=== PATIENT | male | born 1980 | race Caucasian/White ===

== ENCOUNTER → 2019-07-26 08:47 | Outpatient (CLI) | payer OTHER, SELFPAY ==
[2018-12-20 12:02] VITALS: BMI 28.8
--- NOTE | 2019-07-26 08:55 | CT_ITS ---
STUDY: CT MAXILLOFACIAL SINUSES REASON FOR EXAM: Male, 38 years old. Facial pain and pressure RADIATION DOSAGE (If Supplied By Facility): CTDIvol = ( 33.06 ) mGy, DLP = ( 891.70 ) mGycm TECHNIQUE: The patient was scanned in a multi detector CT scanner. High resolution axial imaging was performed without the administration of intravenous contrast material. Sagittal and coronal images were reconstructed. Individualized dose optimization techniques were used for this CT. COMPARISON: None. FINDINGS: FRONTAL SINUSES: Normal aeration, without mucosal inflammatory disease. ETHMOIDAL SINUSES: Normal aeration, with minimal mucosal inflammatory disease. MAXILLARY SINUSES: Normal aeration, with minimal mucosal inflammatory disease. SPHENOIDAL SINUSES: Normal aeration, without mucosal inflammatory disease. There is patency of the bilateral maxillary infundibuli with normal uncinate processes, ethmoid bullae, and hiatus semilunaris. Normal bilateral middle turbinates. Normal bilateral inferior turbinates. Normal midline nasal septum. There is patency of the bilateral nasal airways. The visualized osseous structures are normal. The visualized bilateral orbital contents are normal. CT/Sinus/Facial Bone IMPRESSION: Ethmoidal and maxillary sinusitis Electronically Signed: Kalin Leung MD at 9:56 EDT , Service support ,
== END ==
PROVIDERS: Family Provider Family Medicine; PCP Family Medicine; Referring Provider Otolaryngology; Visit Provider Otolaryngology
DX: J32.2 Chronic ethmoidal sinusitis (principal); J32.0 Chronic maxillary sinusitis
CPT/HCPCS: 70486

== ENCOUNTER → 2019-10-31 07:55 | Outpatient (CLI) | payer OTHER, SELFPAY ==
[2018-12-20 12:02] VITALS: BMI 28.8
--- NOTE | 2019-10-31 07:57 | VDLE_ITS ---
Reason For Study: Muscular mass RIGHT LEFT CFV is compressible, spontaneous, phasic, GSV is normal. competent and demonstrates normal CFV is compressible, spontaneous, phasic, augmentation. competent, and demonstrates normal Procedure augmentation. Exam performed in department. FV is compressible, spontaneous, phasic, A preliminary report was called and/or faxed competent and demonstrates normal to Dr. Piper. augmentation. POP V is compressible, spontaneous, phasic, competent and demonstrates normal augmentation. T/P Trunk is compressible. PTV is compressible. LT PerV is compressible. Interpretation Summary Deep veins of the left lower extremity are patent and compressible segmentally. There is no evidence of left lower extremity deep vein thrombosis. Valvular competence appears intact within the proximal deep venous system on the left . The left great saphenous vein appears patent and compressible segmentally. Ordering Physician: Seamus Piper Referring Physician: Seamus Piper Performed By: Cathryn Andres, IVAN, RVT
== END ==
PROVIDERS: PCP Family Medicine; Referring Provider Family Medicine; Visit Provider Family Medicine
DX: I80.252 Phlebitis and thrombophlebitis of left calf muscular vein (principal)
CPT/HCPCS: 93971

== ENCOUNTER → 2019-11-19 06:38 | Outpatient (CLI) | payer OTHER, SELFPAY ==
[2018-12-20 12:02] VITALS: BMI 28.8
--- NOTE | 2019-11-19 06:46 | MRI_ITS ---
STUDY: MRI LOWER EXTREMITY LEFT TIBIA/FIBULA WITH AND WITHOUT CONTRAST REASON FOR EXAM: Male, 38 years old. left gastrocnemius mass, tiny bump mid/medial calf; not painful TECHNIQUE: An MRI of the left lower leg was performed utilizing sagittal T2 and coronal T1 STIR weighted images were followed by axial T1 and STIR fat sat T1-weighted images following postcontrast axial and coronal T1-weighted images through the left lower leg. A marker BB was placed over the palpable bulge in the medial aspect of the left gastrocnemius muscle. COMPARISON: None. FINDINGS: The tibia and fibula. Normal no evidence of fracture or bone destruction or tumor. Careful attention was paid to the musculature of the left lower leg. The gastrocnemius muscle, soleus muscle in the anterior compartment of the left lower leg appear normal. There is normal subcutaneous fat noted along the left lower leg. At the site of the marker being no abnormalities are identified. The palpable lump in the left lower leg therefore most likely represents a subcutaneous lipoma. No enhancing masses or lesions are seen. MRI/Lower Ext No Joint W/WO Cont IMPRESSION: Normal unenhanced and enhanced MRI of the calf. In particular, no abnormalities were noted in the location of the palpable density. The palpable density therefore most likely represents a subcutaneous lipoma. Electronically Signed: Naveen Gutierrez, at 8:27 EST Tel , Service support ,
== END ==
PROVIDERS: PCP Family Medicine; Referring Provider Family Medicine; Visit Provider Family Medicine
DX: R22.42 Localized swelling, mass and lump, left lower limb (principal)
CPT/HCPCS: 73720; A9575

== ENCOUNTER → 2020-09-20 10:05 | Outpatient (CLI) | payer OTHER, SELFPAY | PROVIDERS: PCP Family Medicine; Referring Provider Physician Assistant Surgical; Visit Provider Physician Assistant Surgical | DX: Z20.828 Contact with and (suspected) exposure to other viral communicable diseases (principal) | CPT/HCPCS: 87635; U0003 ==

== ENCOUNTER → 2025-01-14 | Outpatient (CLI) | payer OTHER, SELFPAY ==
[2025-01-14 12:24] LABS: Absolute Lymphocyte Count 1.49 X10^3/uL (0.83-4.51); Absolute Neutrophil Count 2.3 X10^3/uL (2.0-7.7); Basophil# 0.01 X10^3/uL; Basophil% 0.2 % (0-1); Eosinophil# 0.05 X10^3/uL; Eosinophils% 1.2 % (0-5); Hemoglobin 13.7 g/dL (13.0-16.5); Lymphocyte # 1.49 X10^3/ul (0.83-4.51); Lymphocyte % 35.5 % (19-41); Mean Corp Hgb Conc 34.3 g/dL (32-36); Mean Corpuscular Hgb 29.3 pg (27.0-32.0); Mean Corpuscular Volume 85.5 fL (80-94); Mean Platelet Vol. 10.5 fl (6.2-12.0); Monocyte% 7.1 % (0-10); NRBC Flagged by Analyzer 0 % (0-5); Neutrophil # 2.34 X10^3/uL (2.7-7.7); Neutrophil % 55.8 % (47-70); Platelet Count 186 K/mm3 (150-450); RBC Distribution Width CV 12.1 % (11.6-14.6); RBC Distribution Width SD 37.6 fl (35.1-43.9); Red Blood Count 4.68 M/mm3 (4.6-6.2); White Blood Count 4.2 K/mm3 (4.4-11.0)
[2025-01-14 13:32] LABS: ALB/GLOB Ratio 1.7 RATIO (0.9-2.4); AST(SGOT) 18 U/L (<=37); Alanine Aminotransfer ALT/SGPT 14 U/L (<=46); Albumin, Serum 4.2 g/dL (3.5-5.0); Alkaline Phosphatase 68 U/L (40-129); Anion Gap 9 (5-15); BUN 14 mg/dL (4-19); BUN/Creat Ratio 23.9 RATIO (10-20); Calcium,Total 8.8 mg/dL (7.6-11.0); Chloride 105 mmol/L (98-108); Cholesterol 167 mg/dL (<=200); Creatinine, Serum 0.59 mg/dL (0.70-1.20); EST Glomerular Filtration Rate 123 (>60); Globulin 2.4 g/dL (2.2-4.2); Glucose 97 mg/dL (70-99); High Density Lipoprotein 59 mg/dL; Low Density Lipoprotein Calc. 94 mg/dL; PSA,Total - Annual Screen 0.57 ng/mL (0.02-4.00); Potassium 4.1 mmol/L (3.3-5.1); Protein, Total 6.6 g/dL (5.9-8.4); Sodium Level 138 mmol/L (133-145); Total Bilirubin 0.43 mg/dL (0.00-1.30); Triglycerides 70 mg/dL; Very Low Density Lipoprotein 14 mg/dL (5-40); cholesterol:hdl ratio screen 2.84
== END | disposition home or self-care (01) ==
LOC: MTLAB 09:47
PROVIDERS: PCP Nurse Practitioner Family; Referring Provider Nurse Practitioner Family; Visit Provider Nurse Practitioner Family
DX: Z00.01 Encounter for general adult medical examination with abnormal findings (principal); R53.83 Other fatigue; Z12.5 Encounter for screening for malignant neoplasm of prostate
CPT/HCPCS: 36415; 80053; 80061; 84153; 84403; 85025; G0103